=== PATIENT | female | born 1955 | race African-American/Black ===

== ENCOUNTER 2018-12-24 17:18 | Inpatient (IN) | payer OTHER ==
[~2018-12-24] VITALS: Ht 167.6 cm; Wt 94.9 kg
[~2018-12-24 17:18] MED LIST: AMLO10TA55 PO; FLUT1DIS3 IH; MONT10TA21 PO; OMEP40CA PO; TEMA15CA PO; [UNRECOGNIZED DRUG - CODE] PO
[2018-12-24] MEDS ORDERED: RIVA20TA PO (17:30)
[2018-12-24] MEDS ORDERED: ALBU8HFA IH (17:30)
[2018-12-24] MEDS ORDERED: ASPI81 PO (17:30)
[2018-12-24] MEDS ORDERED: ATOR40TA28 PO (17:30)
[2018-12-24] MEDS ORDERED: IPRAHFA IH (17:30)
[2018-12-24] MEDS ORDERED: HYDR-4455 PO (17:30)
[2018-12-24] MEDS ORDERED: FURO20 PO (17:30)
[2018-12-24] MEDS ORDERED: PARO20TA24 PO (17:30)
[2018-12-24] MEDS ORDERED: ALBUTEROL SULFATE 2.5 MG/0.5 ML NEB SOLUTION NEB ONE (17:45)
[2018-12-24] MEDS ORDERED: IPRATROPIUM BROMIDE 0.5 MG/2.5 ML NEB SOLUTION NEB ONE ×2 (17:45→20:45)
[2018-12-24 17:51] LABS: BASOPHILS % (AUTO) 0.3 % (0.0-2.0); HEMATOCRIT 39.5 % (36-46); HEMOGLOBIN 12.4 g/dL (12.0-16.0); LYMPHOCYTES # (AUTO) 0.5 K/uL (1.0-4.8); LYMPHOCYTES % (AUTO) 12.7 % (22.0-44.0); MEAN CORPUSCULAR HEMOGLOBIN 28.8 pg (26.0-34.0); MEAN CORPUSCULAR HGB CONC 31.4 G/dL (31.0-37.0); MEAN CORPUSCULAR VOLUME 92 fL (80-100); MONOCYTES # (AUTO) 0.8 K/uL (0.1-1.0); MONOCYTES % (AUTO) 18.5 % (2.0-9.0); NEUTROPHILS # (AUTO) 2.8 K/uL (1.8-7.7); NEUTROPHILS % (AUTO) 66.5 % (40.0-70.0); PLATELET COUNT (AUTO) 260 K/uL (150-450); RED BLOOD CELL COUNT(AUTO) 4.31 MIL/uL (4.00-5.20); RED CELL DISTRIBUTION WIDTH 15.6 % (11.5-14.5)
[2018-12-24 18:07] LABS: ANION GAP 11 mmol/L (8-16); CALCIUM, TOTAL 9.4 mg/dL (8.8-10.5); CARBON DIOXIDE 31 mmol/L (22-29); CHLORIDE 101 mmol/L (98-107); CREATININE 0.84 mg/dL (0.60-1.30); GLOMERULAR FILTR. RATE CALC > 60 mL/min (>60); GLUCOSE,RANDOM 95 mg/dL (70-110); POTASSIUM 3.2 mmol/L (3.5-5.1); SODIUM SERUM 143 mmol/L (136-145); UREA NITROGEN, BLOOD 15 mg/dL (7-18)
[2018-12-24 18:10] LABS: B-TYPE NATRIURETIC PEPTIDE 718 pg/mL (0-100)
[2018-12-24 18:21] LABS: ALANINE AMINOTRANSFERASE 29 U/L (12-78); ALKALINE PHOSPHATASE 83 U/L (46-116); ASPARTATE AMINOTRANSFERASE 26 U/L (15-37); BILIRUBIN,TOTAL 0.4 mg/dL (0.1-1.0); TOTAL PROTEIN, SERUM 7.1 g/dL (6.4-8.2)
[2018-12-24] MEDS ORDERED: FUROSEMIDE 40 MG/4 ML VIAL IVP ONE (18:30)
[2018-12-24] MEDS ORDERED: MethylPREDNISolone SOD SUCC 125 MG/2 ML VIAL IVP ONE (18:30)
[2018-12-24] MEDS ORDERED: ASPIRIN 325 MG TABLET PO ONE (18:30)
[2018-12-24] MEDS ORDERED: HYDROCODONE/ACETAMINOPHEN 10-325 MG TABLET PO ONE (19:15)
[2018-12-24] MEDS ORDERED: POTASSIUM CHLORIDE 20 MEQ ER TABLET PO ONE ×2 (20:00)
[2018-12-24] MEDS ORDERED: 0.9% SODIUM CHLORIDE 5 ML NEB SOLUTION NEB ONE ×2 (20:39→23:34)
[2018-12-24] MEDS ORDERED: ALBUTEROL SULFATE 5 MG/ML 20 ML NEB SOLN [BULK] NEB ONE (20:45)
[2018-12-24] MEDS ORDERED: POTASSIUM CHLORIDE 20 MEQ ER TABLET PO PRN (21:00)
[2018-12-24] MEDS ORDERED: POTASSIUM CHL 10 MEQ/WATER 50 ML IV PRN (21:00)
[2018-12-24] MEDS ORDERED: ACETAMINOPHEN 325 MG TABLET PO PRN (21:00)
[2018-12-24] MEDS: FAMOTIDINE 20 MG TABLET PO SCH (21:45)
[2018-12-24] MEDS: DOCUSATE SODIUM 100 MG CAPSULE PO SCH (21:45)
[2018-12-24 22:39] VITALS: BP 137/92
[2018-12-24 23:02] VITALS: BP 137/92
[2018-12-24] MEDS: TEMAZEPAM 15 MG CAPSULE PO SCH (23:22)
[2018-12-24] MEDS: MethylPREDNISolone SOD SUCC 125 MG/2 ML VIAL IVP SCH (23:23)
[2018-12-24] MEDS: HEPARIN SODIUM,PORCINE 5,000 UNITS/ML VIAL SQ SCH (23:23)
[2018-12-24] MEDS: IPRATROPIUM BROMIDE 0.5 MG/2.5 ML NEB SOLUTION NEB PRN (23:39)
[2018-12-24] MEDS: ALBUTEROL SULFATE 2.5 MG/0.5 ML NEB SOLUTION NEB PRN (23:39)
[2018-12-25] MEDS: OxyCODONE HCL/ACETAMINOPHEN 5-325 MG TABLET PO PRN ×4 (01:15→20:51)
[2018-12-25] MEDS: ALBUTEROL SULFATE 2.5 MG/0.5 ML NEB SOLUTION NEB PRN ×3 (04:07→19:35)
[2018-12-25] MEDS: IPRATROPIUM BROMIDE 0.5 MG/2.5 ML NEB SOLUTION NEB PRN ×3 (04:07→19:35)
[2018-12-25 05:16] VITALS: BP 114/66
[2018-12-25 06:29] LABS: ANION GAP 10 mmol/L (8-16); CALCIUM, TOTAL 9.2 mg/dL (8.8-10.5); CARBON DIOXIDE 31 mmol/L (22-29); CHLORIDE 101 mmol/L (98-107); CREATININE 0.68 mg/dL (0.60-1.30); GLOMERULAR FILTR. RATE CALC > 60 mL/min (>60); GLUCOSE,RANDOM 151 mg/dL (70-110); POTASSIUM 3.5 mmol/L (3.5-5.1); SODIUM SERUM 142 mmol/L (136-145); UREA NITROGEN, BLOOD 17 mg/dL (7-18)
[2018-12-25] MEDS: ASPIRIN 81 MG CHEWABLE TABLET PO SCH (07:54)
[2018-12-25] MEDS: FAMOTIDINE 20 MG TABLET PO SCH ×2 (07:54→20:47)
[2018-12-25] MEDS: DOCUSATE SODIUM 100 MG CAPSULE PO SCH ×2 (07:55→20:47)
[2018-12-25] MEDS: FUROSEMIDE 40 MG/4 ML VIAL IVP SCH (07:55)
[2018-12-25] MEDS: HEPARIN SODIUM,PORCINE 5,000 UNITS/ML VIAL SQ SCH ×3 (07:55→23:23)
[2018-12-25] MEDS: MethylPREDNISolone SOD SUCC 125 MG/2 ML VIAL IVP SCH ×3 (07:56→23:25)
[2018-12-25 08:23] VITALS: BP 143/87
[2018-12-25 11:28] VITALS: BP 124/61
[2018-12-25] MEDS: MAGNESIUM HYDROXIDE SUSPENSION 30 ML UDCUP PO PRN (12:52)
[2018-12-25] MEDS: CARVEDILOL 6.25 MG TABLET PO SCH ×2 (12:59→20:47)
[2018-12-25] MEDS: SPIRONOLACTONE 25 MG TABLET PO SCH (12:59)
[2018-12-25 16:24] VITALS: BP 127/81
[2018-12-25 20:17] VITALS: BP 129/73
[2018-12-25] MEDS: TEMAZEPAM 15 MG CAPSULE PO SCH (20:47)
[2018-12-25 23:36] VITALS: BP 100/66
[2018-12-26] MEDS: IPRATROPIUM BROMIDE 0.5 MG/2.5 ML NEB SOLUTION NEB PRN ×4 (04:09→19:55)
[2018-12-26] MEDS: ALBUTEROL SULFATE 2.5 MG/0.5 ML NEB SOLUTION NEB PRN ×4 (04:09→19:55)
[2018-12-26 04:20] VITALS: BP 126/89
[2018-12-26] MEDS: OxyCODONE HCL/ACETAMINOPHEN 5-325 MG TABLET PO PRN ×3 (06:00→20:11)
[2018-12-26 07:40] VITALS: BP 124/84
[2018-12-26] MEDS: HEPARIN SODIUM,PORCINE 5,000 UNITS/ML VIAL SQ SCH ×3 (08:00→23:41)
[2018-12-26] MEDS: MethylPREDNISolone SOD SUCC 125 MG/2 ML VIAL IVP SCH ×3 (08:18→23:36)
[2018-12-26] MEDS: FUROSEMIDE 40 MG/4 ML VIAL IVP SCH (08:18)
[2018-12-26] MEDS: ASPIRIN 81 MG CHEWABLE TABLET PO SCH (08:19)
[2018-12-26] MEDS: FAMOTIDINE 20 MG TABLET PO SCH ×2 (08:19→20:11)
[2018-12-26] MEDS: SPIRONOLACTONE 25 MG TABLET PO SCH (08:19)
[2018-12-26] MEDS: DOCUSATE SODIUM 100 MG CAPSULE PO SCH ×2 (08:19→20:10)
[2018-12-26] MEDS: CARVEDILOL 6.25 MG TABLET PO SCH ×2 (08:19→20:11)
[2018-12-26 11:12] VITALS: BP 110/64
[2018-12-26 13:57] LABS: INR 0.9 (0.9-1.1); PROTHROMBIN TIME 9.9 SEC (9.4-11.6)
[2018-12-26 15:52] VITALS: BP 125/89
[2018-12-26] MEDS: TEMAZEPAM 15 MG CAPSULE PO SCH (20:11)
[2018-12-26 20:29] VITALS: BP 142/90
[2018-12-27] VITALS (27 sets, daily range): BP systolic 124–158; BP diastolic 58–108
[2018-12-27] MEDS: IPRATROPIUM BROMIDE 0.5 MG/2.5 ML NEB SOLUTION NEB PRN ×6 (00:55→23:37)
[2018-12-27] MEDS: ALBUTEROL SULFATE 2.5 MG/0.5 ML NEB SOLUTION NEB PRN ×6 (00:55→23:37)
[2018-12-27] MEDS: OxyCODONE HCL/ACETAMINOPHEN 5-325 MG TABLET PO PRN ×3 (01:14→21:43)
[2018-12-27] MEDS: HEPARIN SODIUM,PORCINE 5,000 UNITS/ML VIAL SQ SCH ×3 (08:00→23:13)
[2018-12-27] MEDS: MethylPREDNISolone SOD SUCC 125 MG/2 ML VIAL IVP SCH ×3 (08:10→23:14)
[2018-12-27] MEDS: FUROSEMIDE 40 MG/4 ML VIAL IVP SCH (08:10)
[2018-12-27] MEDS: DOCUSATE SODIUM 100 MG CAPSULE PO SCH ×2 (08:12→20:09)
[2018-12-27] MEDS: ASPIRIN 81 MG CHEWABLE TABLET PO SCH (08:12)
[2018-12-27] MEDS: SPIRONOLACTONE 25 MG TABLET PO SCH (08:12)
[2018-12-27] MEDS: CARVEDILOL 6.25 MG TABLET PO SCH ×2 (08:13→20:09)
[2018-12-27] MEDS: FAMOTIDINE 20 MG TABLET PO SCH ×2 (08:13→20:09)
[2018-12-27] MEDS ORDERED: LIDOCAINE/PF 1% 30 ML VIAL ONE (12:24)
[2018-12-27] MEDS ORDERED: SODIUM BICARBONATE 50 MEQ/50 ML VIAL ONE (12:25)
[2018-12-27] MEDS ORDERED: HEPARIN SODIUM 1000 UNITS/NS 1,000 ML ONE (12:25)
[2018-12-27] MEDS ORDERED: IOHEXOL 300 MG/ML 150 ML VIAL ONE (12:25)
[2018-12-27] MEDS ORDERED: MIDAZOLAM HCL 2 MG/2 ML VIAL ONE (13:24)
[2018-12-27] MEDS ORDERED: FentaNYL CITRATE-PF 100 MCG/2 ML VIAL ONE (13:24)
[2018-12-27] MEDS ORDERED: HEPARIN SODIUM 2,000 UNITS in HEPARIN SODIUM 1000 UNITS/NS 1,000 ML IARTER ONE (13:27)
[2018-12-27] MEDS ORDERED: SODIUM CHLORIDE 0.9% 500 ML IV ONE (13:27)
[2018-12-27] MEDS ORDERED: MIDAZOLAM HCL 2 MG/2 ML VIAL IVP ONE (13:30)
[2018-12-27] MEDS ORDERED: IOHEXOL 300 MG/ML 150 ML VIAL IARTER ONE (13:30)
[2018-12-27] MEDS ORDERED: FentaNYL CITRATE-PF 100 MCG/2 ML VIAL IVP ONE (13:30)
[2018-12-27] MEDS ORDERED: LIDOCAINE 1% 30 ML/SOD BICARB 8.4% 4 ML SQ ONE (13:30)
[2018-12-27] MEDS: TEMAZEPAM 15 MG CAPSULE PO SCH (20:09)
[2018-12-27] MEDS: APIXABAN 5 MG TABLET PO SCH (20:09)
[2018-12-28] VITALS (7 sets, daily range): BP systolic 104–127; BP diastolic 69–95
[2018-12-28] MEDS: ALBUTEROL SULFATE 2.5 MG/0.5 ML NEB SOLUTION NEB PRN (03:15)
[2018-12-28] MEDS: IPRATROPIUM BROMIDE 0.5 MG/2.5 ML NEB SOLUTION NEB PRN (03:15)
[2018-12-28] MEDS: OxyCODONE HCL/ACETAMINOPHEN 5-325 MG TABLET PO PRN ×3 (03:43→17:25)
[2018-12-28 06:04] LABS: EOSINOPHILS % (AUTO) 0 % (1.0-6.0); HEMATOCRIT 45.3 % (36-46); HEMOGLOBIN 14.3 g/dL (12.0-16.0); LYMPHOCYTES # (AUTO) 0.4 K/uL (1.0-4.8); LYMPHOCYTES % (AUTO) 5.6 % (22.0-44.0); MEAN CORPUSCULAR HEMOGLOBIN 29.1 pg (26.0-34.0); MEAN CORPUSCULAR HGB CONC 31.7 G/dL (31.0-37.0); MEAN CORPUSCULAR VOLUME 92 fL (80-100); MONOCYTES # (AUTO) 0.5 K/uL (0.1-1.0); MONOCYTES % (AUTO) 6.7 % (2.0-9.0); NEUTROPHILS # (AUTO) 6.6 K/uL (1.8-7.7); PLATELET COUNT (AUTO) 417 K/uL (150-450); RED BLOOD CELL COUNT(AUTO) 4.92 MIL/uL (4.00-5.20); RED CELL DISTRIBUTION WIDTH 15.4 % (11.5-14.5)
[2018-12-28 06:24] LABS: NEUTROPHILS % (AUTO) 87.7 % (40.0-70.0)
[2018-12-28 07:04] LABS: ALANINE AMINOTRANSFERASE 29 U/L (12-78); ALBUMIN 3.9 g/dL (3.4-5.0); ALKALINE PHOSPHATASE 79 U/L (46-116); ANION GAP 10 mmol/L (8-16); ASPARTATE AMINOTRANSFERASE 18 U/L (15-37); BILIRUBIN,TOTAL 0.4 mg/dL (0.1-1.0); CALCIUM, TOTAL 9.3 mg/dL (8.8-10.5); CARBON DIOXIDE 30 mmol/L (22-29); CHLORIDE 99 mmol/L (98-107); CREATININE 0.74 mg/dL (0.60-1.30); GLOMERULAR FILTR. RATE CALC > 60 mL/min (>60); GLUCOSE,RANDOM 131 mg/dL (70-110); POTASSIUM 3.9 mmol/L (3.5-5.1); SODIUM SERUM 139 mmol/L (136-145); TOTAL PROTEIN, SERUM 8.1 g/dL (6.4-8.2); UREA NITROGEN, BLOOD 29 mg/dL (7-18)
[2018-12-28] MEDS: IPRATROPIUM BROMIDE 0.5 MG/2.5 ML NEB SOLUTION NEB SCH ×5 (08:01→23:23)
[2018-12-28] MEDS: ALBUTEROL SULFATE 2.5 MG/0.5 ML NEB SOLUTION NEB SCH ×5 (08:01→23:23)
[2018-12-28] MEDS: ASPIRIN 81 MG CHEWABLE TABLET PO SCH (08:31)
[2018-12-28] MEDS: LEVOFLOXACIN 500 MG TABLET PO SCH (08:32)
[2018-12-28] MEDS: CARVEDILOL 6.25 MG TABLET PO SCH ×2 (08:32→20:10)
[2018-12-28] MEDS: APIXABAN 5 MG TABLET PO SCH ×2 (08:32→20:10)
[2018-12-28] MEDS: FAMOTIDINE 20 MG TABLET PO SCH ×2 (08:32→20:10)
[2018-12-28] MEDS: SPIRONOLACTONE 25 MG TABLET PO SCH (08:32)
[2018-12-28] MEDS: HEPARIN SODIUM,PORCINE 5,000 UNITS/ML VIAL SQ SCH ×3 (08:33→23:32)
[2018-12-28] MEDS: DOCUSATE SODIUM 100 MG CAPSULE PO SCH ×2 (08:33→20:10)
[2018-12-28] MEDS: FUROSEMIDE 40 MG/4 ML VIAL IVP SCH (08:34)
[2018-12-28] MEDS: PROMETHAZINE HCL/CODEINE 6.25-10MG/5ML SYRUP UDCUP PO PRN ×3 (09:07→20:10)
[2018-12-28] MEDS: MethylPREDNISolone SOD SUCC 125 MG/2 ML VIAL IVP SCH ×3 (11:04→23:32)
[2018-12-28] MEDS: LISINOPRIL 10 MG TABLET PO SCH (17:25)
[2018-12-28] MEDS: TEMAZEPAM 15 MG CAPSULE PO SCH (20:10)
[2018-12-29] VITALS (7 sets, daily range): BP systolic 114–128; BP diastolic 60–80
[2018-12-29] MEDS: OxyCODONE HCL/ACETAMINOPHEN 5-325 MG TABLET PO PRN ×4 (02:16→22:44)
[2018-12-29] MEDS: ALBUTEROL SULFATE 2.5 MG/0.5 ML NEB SOLUTION NEB SCH ×6 (02:53→23:16)
[2018-12-29] MEDS: IPRATROPIUM BROMIDE 0.5 MG/2.5 ML NEB SOLUTION NEB SCH ×6 (02:53→23:16)
[2018-12-29] MEDS: PROMETHAZINE HCL/CODEINE 6.25-10MG/5ML SYRUP UDCUP PO PRN ×3 (04:16→20:20)
[2018-12-29] MEDS: MethylPREDNISolone SOD SUCC 125 MG/2 ML VIAL IVP SCH ×4 (05:08→23:34)
[2018-12-29] MEDS: FUROSEMIDE 40 MG/4 ML VIAL IVP SCH (08:37)
[2018-12-29] MEDS: SPIRONOLACTONE 25 MG TABLET PO SCH (08:37)
[2018-12-29] MEDS: LEVOFLOXACIN 500 MG TABLET PO SCH (08:38)
[2018-12-29] MEDS: CARVEDILOL 6.25 MG TABLET PO SCH ×2 (08:38→20:18)
[2018-12-29] MEDS: DOCUSATE SODIUM 100 MG CAPSULE PO SCH ×2 (08:38→20:18)
[2018-12-29] MEDS: ASPIRIN 81 MG CHEWABLE TABLET PO SCH (08:38)
[2018-12-29] MEDS: APIXABAN 5 MG TABLET PO SCH ×2 (08:38→20:18)
[2018-12-29] MEDS: FAMOTIDINE 20 MG TABLET PO SCH ×2 (08:38→20:18)
[2018-12-29] MEDS: HEPARIN SODIUM,PORCINE 5,000 UNITS/ML VIAL SQ SCH ×2 (08:39→16:27)
[2018-12-29] MEDS: LISINOPRIL 10 MG TABLET PO SCH (10:18)
[2018-12-29] MEDS ORDERED: APIX5TAB PO (18:30)
[2018-12-29] MEDS ORDERED: ASPI81TA39 PO (18:31)
[2018-12-29] MEDS ORDERED: CARV6 PO (18:31)
[2018-12-29] MEDS ORDERED: FURO40 PO (18:32)
[2018-12-29] MEDS ORDERED: LISI-662 PO (18:33)
[2018-12-29] MEDS ORDERED: PROM5SYR2 PO (18:34)
[2018-12-29] MEDS ORDERED: SPIR25 PO (18:34)
[2018-12-29] MEDS ORDERED: COMBISP IH (18:35)
[2018-12-29] MEDS ORDERED: ADV100 IH (18:35)
[2018-12-29] MEDS ORDERED: PRED20 PO ×2 (18:36→18:37)
[2018-12-29] MEDS ORDERED: PRED10 PO (18:38)
[2018-12-29] MEDS ORDERED: LEVO500 PO (18:38)
[2018-12-29] MEDS: TEMAZEPAM 15 MG CAPSULE PO SCH (20:18)
[2018-12-30] MEDS: IPRATROPIUM BROMIDE 0.5 MG/2.5 ML NEB SOLUTION NEB SCH ×2 (03:06→08:36)
[2018-12-30] MEDS: ALBUTEROL SULFATE 2.5 MG/0.5 ML NEB SOLUTION NEB SCH ×2 (03:06→08:36)
[2018-12-30] MEDS: OxyCODONE HCL/ACETAMINOPHEN 5-325 MG TABLET PO PRN ×2 (03:06→10:01)
[2018-12-30] MEDS: PROMETHAZINE HCL/CODEINE 6.25-10MG/5ML SYRUP UDCUP PO PRN (03:59)
[2018-12-30 04:21] VITALS: BP 135/72
[2018-12-30] MEDS: MethylPREDNISolone SOD SUCC 125 MG/2 ML VIAL IVP SCH (05:46)
[2018-12-30] MEDS: ASPIRIN 81 MG CHEWABLE TABLET PO SCH (08:11)
[2018-12-30] MEDS: FUROSEMIDE 40 MG/4 ML VIAL IVP SCH (08:11)
[2018-12-30] MEDS: HEPARIN SODIUM,PORCINE 5,000 UNITS/ML VIAL SQ SCH ×2 (08:11)
[2018-12-30] MEDS: SPIRONOLACTONE 25 MG TABLET PO SCH (08:11)
[2018-12-30] MEDS: FAMOTIDINE 20 MG TABLET PO SCH (08:12)
[2018-12-30] MEDS: APIXABAN 5 MG TABLET PO SCH (08:12)
[2018-12-30] MEDS: LEVOFLOXACIN 500 MG TABLET PO SCH (08:12)
[2018-12-30] MEDS: CARVEDILOL 6.25 MG TABLET PO SCH (08:12)
[2018-12-30] MEDS: DOCUSATE SODIUM 100 MG CAPSULE PO SCH (08:12)
[2018-12-30] MEDS: LISINOPRIL 10 MG TABLET PO SCH (08:12)
[2018-12-30] MEDS: MAGNESIUM HYDROXIDE SUSPENSION 30 ML UDCUP PO PRN (08:13)
[2018-12-30 08:19] VITALS: BP 123/90
== END 2018-12-30 12:30 | disposition home or self-care (01) | DRG 192 ==
LOC: EMS 18:10 → 5S 21:00
PROVIDERS: ADMIT Internal Medicine; ATTEND Internal Medicine
PROC: 4A023N7 Measurement of Cardiac Sampling and Pressure, Left Heart, Percutaneous Approach (ICD-10-PCS; principal; 2018-12-27)
PROC: B2111ZZ Fluoroscopy of Multiple Coronary Arteries using Low Osmolar Contrast (ICD-10-PCS; 2018-12-27)
PROC: B2151ZZ Fluoroscopy of Left Heart using Low Osmolar Contrast (ICD-10-PCS; 2018-12-27)
DX: I11.0 Hypertensive heart disease with heart failure (principal); I42.9 Cardiomyopathy, unspecified; J45.901 Unspecified asthma with (acute) exacerbation; I50.23 Acute on chronic systolic (congestive) heart failure; E87.6 Hypokalemia; J44.9 Chronic obstructive pulmonary disease, unspecified; E66.9 Obesity, unspecified; I48.91 Unspecified atrial fibrillation; Z98.84 Bariatric surgery status; Z79.899 Other long term (current) drug therapy; Z68.33 Body mass index [BMI] 33.0-33.9, adult
CPT/HCPCS: 93005; 93306; 94640; 94644; 96374; 96375; G0378; J1644; J1940; J2250; J2930; J3010; J3490; Q9967

== ENCOUNTER 2020-04-16 15:18 | Emergency (ER) | payer OTHER ==
[~2020-04-16] VITALS: Ht 167.6 cm; Wt 84.0 kg
[~2020-04-16 15:18] MED LIST changes: -AMLO10TA55 PO; +APIX5TAB PO; +ASPI-1111 PO; +ATOR40TA28 PO; +AUD NEB; +CARV3 PO; -FLUT1DIS3 IH; +FURO40 PO; +IPRAHFA IH; +OMEP20 PO; -OMEP40CA PO; +PARO20TA24 PO; +PERCT PO; +SPIR25 PO; -TEMA15CA PO; -[UNRECOGNIZED DRUG - CODE] PO
[2020-04-16] MEDS ORDERED: LIDOCAINE 5% TRANSDERMAL PATCH TD ONE (16:30)
[2020-04-16 17:59] VITALS: BP 121/68
== END 2020-04-16 18:10 | disposition home or self-care (01) ==
LOC: EMS 15:18
DX: S70.12XA Contusion of left thigh, initial encounter (principal); I11.0 Hypertensive heart disease with heart failure; I50.9 Heart failure, unspecified; J45.909 Unspecified asthma, uncomplicated; V03.00XA Pedestrian on foot injured in collision with car, pick-up truck or van in nontraffic accident, initial encounter; Y93.89 Activity, other specified; Y92.481 Parking lot as the place of occurrence of the external cause; Y99.8 Other external cause status
CPT/HCPCS: 73503; 73552